=== PATIENT | female | born 1985 | race Caucasian/White ===

== ENCOUNTER 2021-12-16 15:40 | Outpatient (CLI) | payer BC, SELFPAY ==
[2021-12-16 09:32] LABS: Cholesterol* 182 mg/dL (90-199); Glucose* 92 mg/dL (60-115)
[2021-12-16 09:33] LABS: HDL Cholesterol* 48 mg/dL (>=50); LDL Cholesterol Calculated 111 mg/dL (<100); Triglycerides* 114 mg/dL (40-149)
[2021-12-21 12:34] LABS: Progesterone, HPLC-MS/MS 8.42 ng/mL
== END 2021-12-16 15:41 | disposition home or self-care (01) ==
PROVIDERS: PCP Physician Assistant Medical; Visit Provider Physician Assistant
DX: N97.9 Female infertility, unspecified (principal); Z13.6 Encounter for screening for cardiovascular disorders; Z13.1 Encounter for screening for diabetes mellitus
CPT/HCPCS: 80061; 82947; 84144

== ENCOUNTER 2023-03-09 08:23 | Outpatient (CLI) | payer BC, SELFPAY | END 2023-03-09 08:24 | disposition home or self-care (01) | LOC: NFLDREF 08:25 | PROVIDERS: PCP Physician Assistant Medical; Visit Provider Registered Nurse | DX: R30.0 Dysuria (principal); N89.8 Other specified noninflammatory disorders of vagina | CPT/HCPCS: 87086; 87186 ==

== ENCOUNTER 2024-06-12 10:53 | Outpatient (CLI) | payer BC, SELFPAY ==
[2024-06-15 11:39] LABS: HPV Source Vaginal; HPV, High Risk by TMA Not Detected
== END 2024-06-12 10:54 | disposition home or self-care (01) ==
PROVIDERS: PCP Nurse Practitioner Family; Visit Provider Nurse Practitioner Family
DX: Z12.4 Encounter for screening for malignant neoplasm of cervix (principal); Z13.1 Encounter for screening for diabetes mellitus; Z13.6 Encounter for screening for cardiovascular disorders
CPT/HCPCS: 80061; 82947; 87624; 87625; 88141; 88142

== ENCOUNTER 2024-09-25 10:04 | Outpatient (CLI) | payer BC, SELFPAY ==
--- NOTE | 2024-09-25 10:15 | CRLHL7_ITS ---
For Patients: As a result of the Century Cures Act, medical imaging exams and procedure reports are released immediately into your electronic medical record. You may view this report before your referring provider. If you have questions, please contact your health care provider. INDICATION: BILATERAL SCREENING MAMMOGRAM, ASYMPTOMATIC 39 Y/O FEMALE COMPARISON: BASELINE TECHNIQUE: Digital mammogram in CC and MLO projections including computer-aided detection (CAD) and tomosynthesis. BREAST COMPOSITION: There are scattered areas of fibroglandular density. FINDINGS: No suspicious findings. ASSESSMENT: BI-RADS 1 Negative RECOMMENDATION: Annual screening mammogram. A lay language report of this examination will be provided to the patient. Dictated by: Rosalind Burnette MD @ 09/27/2024 09:29:08 (Electronically Signed)
== END 2024-09-25 10:05 | disposition home or self-care (01) ==
LOC: MAMMO 10:04
PROVIDERS: PCP Nurse Practitioner Family; Visit Provider Nurse Practitioner Family
DX: Z12.31 Encounter for screening mammogram for malignant neoplasm of breast (principal)
CPT/HCPCS: 77063; 77067